=== PATIENT | male | born 1965 | race American Indian/Alaskan Native ===

== ENCOUNTER 2019-07-08 08:33 | Outpatient (CLI) | payer MEDICARE ==
--- NOTE | 2019-07-09 08:42 | Vascular Lab Report ---
DUPLEX DOPPLER LOWER EXTREMITY VEINS, LEFT INDICATION: INFLAMMATION SWELLING OF LEFT LEG(M79.89) CALF PAIN LOWER LEG(M. TECHNIQUE: Duplex doppler imaging was performed through the veins of the left lower extremity using venous compression and other maneuvers. COMPARISON: No relevant prior imaging study available. COMMENT: This examination is just presented to me for interpretation due to technical factors at the hospital. FINDINGS: Left Common femoral vein: Negative. Left Superficial femoral vein: Negative. Left Popliteal vein: Negative. Left Calf veins: Negative. Additional findings: There is a complex subcutaneous collection in the anterior, distal left lower ex tremity just above the ankle measuring 3.0 x 0.7 x 2.7 cm. There is internal debris and no internal f low on color Doppler. This has the appearance of a small abscess.. IMPRESSION: No sonographic evidence for DVT in the left lower extremity. Possible subcutaneous abscess in the distal, anterior left lower extremity. Please correlate with the patient. Signer Name: Shin Santacruz Jr, MD Signed: 07/09/2019 8:37 AM Workstation Name: [id number]
== END 2019-07-08 08:34 | disposition home or self-care (01) ==
LOC: VAS 08:33
PROVIDERS: ATTEND Podiatrist Foot & Ankle Surgery
DX: M79.89 Other specified soft tissue disorders (principal); M79.662 Pain in left lower leg